=== PATIENT | female | born 1970 | race Hispanic/Latino ===

== ENCOUNTER 2019-03-13 21:37 | Emergency (ER) | payer SELFPAY ==
[2019-03-13] MEDS ORDERED: DEXAMETHASONE 10 MG/ML VIAL ONE (22:36)
[2019-03-13] MEDS ORDERED: DIPHENHYDRAMINE 50 MG/ML VIAL ONE (22:37)
[2019-03-13] MEDS ORDERED: METOCLOPRAMIDE 10 MG/2mL INJ ONE (22:37)
[2019-03-13] MEDS ORDERED: NA CHLORIDE 0.9% 1,000 ML ONE (22:37)
[2019-03-13 23:04] LABS: Absolute Lymphocytes (CBC) 2.1 K/uL (0.7-4.9); Absolute Monocytes 0.5 K/uL (0.1-1.3); Absolute Neutrophil 3.5 K/uL (1.8-8.0); Basophils % 0.7 % (0-1.3); Eosinophils % 2.9 % (0-4.4); Hematocrit 35.6 % (36.0-45.0); Lymphocytes % 33.3 % (15.3-44.8); MPV 8.5 fL (7.6-11.3); Monocytes % 7.7 % (3.3-12.3); RBC Red Blood Cell Count 4.46 M/uL (3.86-4.86)
[2019-03-13 23:13] LABS: Protime INR 0.93
[2019-03-13 23:20] LABS: Potassium 3.6 mmol/L (3.5-5.1)
--- NOTE | 2019-03-14 00:22 | EDPHYS ---
Physician Documentation [facility] Name: Miryam Dao Age: 48 yrs Sex: Female : 1970 Arrival Date: 03/13/2019 Time: 21:40 Bed 19 Private MD: ED Physician Zev Bhatia HPI: 03/13 22:25 This 48 yrs old Female presents to ER via EMS with complaints of headache, cp cough. 22:25 The patient complains of pain to the back and right side of head. cp 22:25 The patient describes the headache as a pressure, sharp. cp 22:25 Onset: The symptoms/episode began/occurred today. Associated signs and symptoms: cp Pertinent negatives: fever, neck stiffness, sinus congestion, sinus tenderness, vomiting. 22:25 Severity of symptoms: in the emergency department the pain is unchanged, despite EMS cp interventions. 22:25 Headache History: The patient has had previous headaches and this one is similar to cp previous episodes. Family reports patient was beach when she started coughing and then complained of headache that started in back of head. 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 - Social history:: Smoking status: Patient/guardian denies using tobacco. - Ebola Screening: : Patient negative for fever greater than or equal to 101.5 degrees Fahrenheit, and additional compatible Ebola Virus Disease symptoms. ROS: 22:30 Constitutional: Negative for body aches, chills, fever, poor PO intake. cp 22:30 Cardiovascular: Negative for chest pain, edema, palpitations. cp 22:30 Eyes: Negative for injury, pain, redness, and discharge. cp 22:30 ENT: Negative for drainage from ear(s), ear pain, sore throat, difficulty swallowing, difficulty handling secretions. 22:30 Respiratory: Positive for cough, with no reported sputum, Negative for shortness of breath, wheezing. 22:30 Abdomen/GI: Negative for vomiting, diarrhea, constipation. 22:30 Back: Negative for pain at rest, pain with movement. 22:30 : Negative for urinary symptoms. 22:30 Neuro: Positive for headache, Negative for altered mental status, weakness. 22:30 All other systems are negative. Exam: 22:35 Constitutional: The patient appears in no acute distress, alert, awake, cp non-diaphoretic, non-toxic, well developed, well nourished, uncomfortable. 22:35 Head/Face: Normocephalic, atraumatic. Eyes: Pupils equal round and reactive to light, cp extra-ocular motions intact. Lids and lashes normal. Conjunctiva and sclera are non-icteric and not injected. Cornea within normal limits. Periorbital areas with no swelling, redness, or edema. ENT: Nares patent. No nasal discharge, no septal abnormalities noted. Tympanic membranes are normal and external auditory canals are clear. Oropharynx with no redness, swelling, or masses, exudates, or evidence of obstruction, uvula midline. Mucous membranes moist. 22:35 Neck: ROM/movement: is normal, is supple, without pain, no range of motions limitations, no nuchal rigidity. 22:35 Chest/axilla: Inspection: normal, Palpation: is normal, no crepitus, no tenderness. 22:35 Cardiovascular: Rate: normal, Rhythm: regular. 22:35 Respiratory: the patient does not display signs of respiratory distress, Respirations: normal, no use of accessory muscles, no retractions, no splinting, no tachypnea, labored breathing, is not present, Breath sounds: are clear throughout, no decreased breath sounds, no stridor, no wheezing. 22:35 Abdomen/GI: Inspection: abdomen appears normal, Palpation: abdomen is soft and non-tender, in all quadrants. 22:35 Back: pain, is absent, ROM is normal. 22:35 Skin: no rash present. 22:35 Neuro: Orientation: to person, place \T\ time. Mentation: is normal, Cerebellar function: is grossly normal, Motor: moves all fours, strength is normal, Sensation: is normal. Vital Signs: 21:45 BP 132 / 61; Pulse 68; Resp 24 S; Temp 98.3(O); Pulse Ox 100% on R/A; Weight 64.86 kg jd3 (R); Height 5 ft. 3 in. (160.02 cm) (R); Pain 9/10; 23:21 BP 111 / 56; Pulse 86; Resp 16 S; Pulse Ox 100% on R/A; Pain 0/10; jd3 03/14 00:28 BP 106 / 61; Pulse 63; Resp 16 S; Pulse Ox 100% on R/A; jd3 03/13 21:45 Body Mass Index 25.33 (64.86 kg, 160.02 cm) j MDM: 03/13 22:21 Patient medically screened. 03/14 00:20 ED course: VSS. Patient reports headache resolved. cp 03/13 22:21 Order name: CBC with Diff; Complete Time: 23:48 cp 03/13 23:49 Interpretation: Normal except: HGB 11.5; HCT 35.6; MCH 25.9; RDW 20.8. cp 03/13 22:21 Order name: BMP; Complete Time: 23:48 cp 03/13 22:18 Order name: CT Head Brain wo Cont cp 03/13 22:21 Order name: PT-INR; Complete Time: 23:48 cp 03/13 22:18 Order name: IV; Complete Time: 22:19 cp 03/13 22:18 Order name: Urine Dipstick-Ancillary (obtain specimen); Complete Time: 22:32 cp 03/13 22:18 Order name: Urine Test (obtain specimen); Complete Time: 22:32 cp Administered Medications: 03/13 22:30 Drug: NS 0.9% 1000 ml Route: IV; Rate: 1 bolus; Site: right antecubital; [facility] 03/14 00:03 Follow up: Response: No adverse reaction; IV Status: Completed infusion; IV Intake: jd3 1000ml 03/13 22:30 Drug: Reglan 10 mg Route: IVP; Site: right antecubital; jd3 23:30 Follow up: Response: No adverse reaction j 22:30 Drug: Benadryl 25 mg Route: IVP; Site: right antecubital; jd3 23:30 Follow up: Response: No adverse reaction [facility] 22:30 Drug: Decadron - Dexamethasone 10 mg Route: IVP; Site: right antecubital; jd3 23:30 Follow up: Response: No adverse reaction [facility] 03/14 00:03 Not Given (Patient Refused): TORadol - Ketorolac 15 mg IVP once jd3 Disposition: 06:27 Co-signature as Attending Physician, Zev Bhatia MD. pkl Disposition: 03/14/19 00:21 Discharged to Home. Impression: Headache. - Condition is Stable. - Discharge Instructions: General Headache Without Cause. - Prescriptions for Fiorinal 50- 325-40 mg Oral Capsule - take 1 capsule by ORAL route every 4 hours As needed - not to exceed 6 capsules per day; 20 capsule. Ibuprofen 800 mg Oral Tablet - take 1 tablet by ORAL route every 8 hours As needed take with food; 30 tablet. - Medication Reconciliation Form, Thank You Letter, Antibiotic Education, Prescription Opioid Use form. - Follow up: Private Physician; When: 2 - 3 days; Reason: Recheck today's complaints. - Problem is new. - Symptoms have improved. Signatures: Dispatcher [employer] EDMS Zev Bhatia MD MD pkl Anthony Joseph PA PA cp Davies, Jonathon, RN RN jd3 Corrections: (The following items were deleted from the chart) 00:33 00:21 03/14/2019 00:21 Discharged to Home. Impression: Headache. Condition is Stable. jd3 Forms are Medication Reconciliation Form, Thank You Letter, Antibiotic Education, Prescription Opioid Use. Follow up: Private Physician; When: 2 - 3 days; Reason: Recheck today's complaints. Problem is new. Symptoms have improved. cp 23:47 03/13 22:25 The patient describes the headache as aching, cp cp
--- NOTE | 2019-03-14 00:22 | ER ---
Nurse's Notes [facility] Name: Miryam Dao Age: 48 yrs Sex: Female : 1970 Arrival Date: 03/13/2019 Time: 21:40 Bed 19 Private MD: Diagnosis: Headache Presentation: 03/13 21:40 Presenting complaint: EMS states: "She started to have a sever headache while at the [facility] beach with her family. she reported that the headache caused it to be hard to breath and started breathing fast. she then reported dizziness. by the time we got here to the hospital she was only complaining of a headache. family reported that last time this happened it was relater to her anxiety.". Transition of care: patient was not received from another setting of care. Onset of symptoms was March 13, 2019. Risk Assessment: Do you want to hurt yourself or someone else? Patient reports no desire to harm self or others. Initial Sepsis Screen: Does the patient meet any 2 criteria? No. Patient's initial sepsis screen is negative. Does the patient have a suspected source of infection? No. Patient's initial sepsis screen is negative. Care prior to arrival: Medication(s) given: Normal saline infusion, 200 ml IV initiated. 20 GA, in the right antecubital area, Glucose check: 106. 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 - Social history:: Smoking status: Patient/guardian denies using tobacco. - Ebola Screening: : Patient negative for fever greater than or equal to 101.5 degrees Fahrenheit, and additional compatible Ebola Virus Disease symptoms. Screenin:46 Abuse screen: Denies threats or abuse. Nutritional screening: No deficits noted. d3 Tuberculosis screening: No symptoms or risk factors identified. Fall Risk IV access (20 points). Ambulatory Aid- None/Bed Rest/Nurse Assist (0 pts). Gait- Normal/Bed Rest/Wheelchair (0 pts) Mental Status- Oriented to own ability (0 pts). Total Yee Fall Scale indicates No Risk (0-24 pts). Assessment: 21:46 General: Appears uncomfortable, Behavior is cooperative, appropriate for age, anxious. jd3 Pain: Complains of pain in head Quality of pain is described as pressure, sharp. Neuro: Level of Consciousness is awake, alert, obeys commands, Oriented to person, place, time, situation, Appropriate for age Reports dizziness, headache. Cardiovascular: Heart tones S1 S2 present Capillary refill < 3 seconds Patient's skin is warm and dry. Respiratory: Airway is patent is compromised Respiratory effort is even, unlabored, Respiratory pattern is symmetrical, tachypnea Breath sounds are clear bilaterally. GI: Abdomen is round non-distended, Reports vomiting, Patient currently denies abdominal pain. : No signs and/or symptoms were reported regarding the genitourinary system. EENT: No signs and/or symptoms were reported regarding the EENT system. Derm: Skin is intact, Skin is dry, Skin is normal, Skin temperature is warm. Musculoskeletal: Circulation, motion, and sensation intact. Range of motion: intact in all extremities. 23:21 Reassessment: Patient appears in no apparent distress at this time. Patient and/or jd3 family updated on plan of care and expected duration. Pain level reassessed. Patient is alert, oriented x 3, equal unlabored respirations, skin warm/dry/pink. Patient denies pain at this time. Patient states feeling better. 03/14 00:28 Reassessment: Patient appears in no apparent distress at this time. Patient and/or jd3 family updated on plan of care and expected duration. Pain level reassessed. Patient is alert, oriented x 3, equal unlabored respirations, skin warm/dry/pink. Patient states feeling better. Vital Signs: 03/13 21:45 BP 132 / 61; Pulse 68; Resp 24 S; Temp 98.3(O); Pulse Ox 100% on R/A; Weight 64.86 kg jd3 (R); Height 5 ft. 3 in. (160.02 cm) (R); Pain 9/10; 23:21 BP 111 / 56; Pulse 86; Resp 16 S; Pulse Ox 100% on R/A; Pain 0/10; jd3 03/14 00:28 BP 106 / 61; Pulse 63; Resp 16 S; Pulse Ox 100% on R/A; jd3 03/13 21:45 Body Mass Index 25.33 (64.86 kg, 160.02 cm) jd3 ED Course: 03/13 21:40 Patient arrived in ED. jd3 21:44 Triage completed. jd3 21:45 Maintain EMS IV. Dressing intact. Good blood return noted. Site clean \\T\\ dry. Gauge \\T\\ glendy 3 site: 20-gauge in Right AC. 21:46 Arm band placed on. jd3 21:46 Patient has correct armband on for positive identification. Bed in low position. Call j light in reach. Side rails up X2. Adult w/ patient. 22:10 Urine collected: clean catch specimen, clear, jesse colored, Amount Voided: 80mL. jp3 22:11 Anthony Joseph PA is PHCP. cp 22:11 Zev Bhatia MD is Attending Physician. cp 22:20 Trino Bender RN is Primary Nurse. jd3 22:50 Initial lab(s) drawn, by me, sent to lab. jp3 22:54 CT Head Brain wo Cont In Process Unspecified. EDMS 23:07 PT-INR Sent. jp3 23:07 BMP Sent. jp3 23:07 CBC with Diff Sent. jp3 03/14 00:29 No provider procedures requiring assistance completed. IV discontinued, intact, jd3 bleeding controlled, No redness/swelling at site. Pressure dressing applied. Administered Medications: 03/13 22:30 Drug: NS 0.9% 1000 ml Route: IV; Rate: 1 bolus; Site: right antecubital; jd3 03/14 00:03 Follow up: Response: No adverse reaction; IV Status: Completed infusion; IV Intake: jd3 1000ml 03/13 22:30 Drug: Reglan 10 mg Route: IVP; Site: right antecubital; jd3 23:30 Follow up: Response: No adverse reaction jd3 22:30 Drug: Benadryl 25 mg Route: IVP; Site: right antecubital; jd3 23:30 Follow up: Response: No adverse reaction jd3 22:30 Drug: Decadron - Dexamethasone 10 mg Route: IVP; Site: right antecubital; jd3 23:30 Follow up: Response: No adverse reaction jd3 03/14 00:03 Not Given (Patient Refused): TORadol - Ketorolac 15 mg IVP once jd3 Intake: 00:03 IV: 1000ml; Total: 1000ml. jd3 Outcome: 00:21 Discharge ordered by . cp 00:30 Discharged to home ambulatory, with family. jd3 00:30 Condition: stable 00:30 Discharge instructions given to patient, family, Instructed on discharge instructions, follow up and referral plans. medication usage, Demonstrated understanding of instructions, follow-up care, medications, Prescriptions given X 2. 00:33 Patient left the ED. jd3 Signatures: Dispatcher [employer] EDMS Anthony Joseph PA PA cp Davies, Jonathon, RN RN jd3 Gilberto Mcgrath jp3 Corrections: (The following items were deleted from the chart) 03/13 22:30 22:10 Urine collected: clean catch specimen, clear, tea colored, Amount Voided: 80mL [id number] 23:24 23:21 Reassessment: Patient appears in no apparent distress at this time. Patient jd3 and/or family updated on plan of care and expected duration. Pain level reassessed. Patient is alert, oriented x 3, equal unlabored respirations, skin warm/dry/pink. jd3
--- NOTE | 2019-03-16 11:10 | RAD REPORT ---
EXAM DESCRIPTION: CT - Head Brain Wo Cont - 03/13/2019 11:16 pm CLINICAL HISTORY: Severe headache with dizziness. COMPARISON: None. TECHNIQUE: CT scan of the brain without IV contrast. This exam was performed according to our depa rtmental dose-optimization program, which includes automated exposure control, adjustment of the mA a nd/or kV according to patient size and/or use of iterative reconstruction technique. FINDINGS: The ventricles, cisterns, and sulci are age-appropriate. No evidence of acute infarction, intracranial hemorrhage, extra-axial fluid collection, or midline shift. No air-fluid levels are seen in the paranasal sinuses to suggest acute sinusitis. No depressed skull fracture. IMPRESSION: No acute intracranial findings. Electronically signed by: Mike Tavera MD 03/13/2019 10:56 PM CDT Due to temporary technical issues with the PACS/Fluency reporting system, reports are being signed by the in house radiologist as a courtesy to ensure prompt reporting. The interpreting radiologist is f ully responsible for the content of the report.
== END 2019-03-14 00:33 | disposition home or self-care (01) ==
LOC: ER 21:37
DX: R51 Headache (principal); R05 Cough; I10 Essential (primary) hypertension; F41.9 Anxiety disorder, unspecified
CPT/HCPCS: 36415; 70450; 80048; 85025; 85610; 96361; 96374; 96375; 99284; J1100; J2765; J7030